=== PATIENT | male | born 1985 ===

== ENCOUNTER 2019-06-06 10:56 | Inpatient (IN) | payer MEDICAID ==
[~2019-06-06] VITALS: Ht 180.3 cm; Wt 116.8 kg
[2019-06-06] MEDS ORDERED: mag hydrox/Alum hydrox/simeth 30ml oral suspension PO PRN (12:00)
[2019-06-06] MEDS ORDERED: acetaminophen 325mg tablet PO PRN ×2 (12:00)
[2019-06-06] MEDS ORDERED: loperamide 2mg capsule PO PRN (12:00)
[2019-06-06] MEDS ORDERED: magnesium hydroxide 30ml (MOM) UD suspension PO PRN (12:00)
[2019-06-06] MEDS ORDERED: NICOTINE POLACRILEX 2 MG LOZENGE BC PRN (12:00)
[2019-06-06] MEDS ORDERED: NO HOME MEDS (12:54)
[2019-06-06 13:13] VITALS: BP 146/103
--- NOTE | 2019-06-06 16:29 | NUR ---
ADMIT NOTE The patient is a 34 year old male who attends [employer]. He presented to the [facility] reporting increased impulsive activities. Reported moods have been "all over the place", but mostly depressed with thoughts of suicide. Reports buying a motorcycle because it "was dangerous and if he crashed it would just be all over." Stated, "Its like having fight or flight feelings, but I'm frozen and waiting for the lion to kill me."
--- NOTE | 2019-06-06 16:40 | NUR ---
NURSING PROGRESS NOTE Legal hold: 5150 Client on involuntary status for DTS Report received from nurse with use of SBAR Why are they here: The patient is a 34 year old male who attends [employer]. He presented to the [facility] reporting increased impulsive activities. Reported moods have been "all over the place", but mostly depressed with thoughts of suicide. Reports buying a motorcycle because it "was dangerous and if he crashed it would just be all over." Stated, "Its like having fight or flight feelings, but I'm frozen and waiting for the lion to kill me." Assessment What has happened this shift: Patient was admitted, showered and oriented to unit. Depressed and blunted mood with mild anxiety. Cooperative. Attended Art Therapy and isolated to room. See admit note. S/I, H/I: Plan to drive motorcycle off a ryann A/VH: Denies Sleep: Napped ADL's: Self Group attendance: yes Were meds taken:None ordered Any med S/E N/A Mental Status Exam Appearance: Neat and clean Eye contact: Direct, good Behavior: Cooperative Speech: Clear, articulate Mood: depressed Affect: blunted Thought process: linear Thought Content: getting help Cognition: Alert Insight: poor Judgment: poor Interventions PRN's used: None Therapeutic interventions: 1:1 assessment, establish rapport, active listening, encouragement to attend groups, provided therapeutic environment, and q15m safety checks. Restraints/seclusion/emergency medication: None Justification of Continued Inpatient Treatment: Requires interruption of current crisis, medications, and a safe and supportive environment to prevent readmission.
[2019-06-06] MEDS: LORazepam 1 MG tablet PO PRN (20:08)
[2019-06-06 20:11] VITALS: BP 157/95
--- NOTE | 2019-06-07 00:27 | NUR ---
NURSING PROGRESS NOTE Legal hold: 5150 Client on involuntary status for DTS Report received from nurse with use of SBAR Why are they here: The patient is a 34 year old male who attends [employer]. He presented to the [facility] reporting increased impulsive activities. Reported moods have been "all over the place", but mostly depressed with thoughts of suicide. Reports buying a motorcycle because it "was dangerous and if he crashed it would just be all over." Stated, "Its like having fight or flight feelings, but I'm frozen and waiting for the lion to kill me." Assessment What has happened this shift: Pt was in his room resting during shift change. Pt was cooperative during 1:1 physical assessment. Pt sated that he had an alright day and was feeling pretty good. He denies S/I at the moment but states that his mood fluctuates and any trigger can set him off. "Lately, a lot of things have been triggering me, like people at school, and just being around too many people, I start getting very anxious and shacking." He does enforce anxiety and requested something for this. An Ativan was administered with good effect. Patient denies auditory and visual hallucinations. Pt remained isolative in his room but did come out for HS snack. S/I, H/I: Denies A/VH: Denies Sleep: See sleep assessment ADL's: Independent Group attendance: Attended HS snack Were meds taken: yes Any med S/E N/A: none noted or observed Mental Status Exam Appearance: Neat and clean Eye contact: Direct, good Behavior: Cooperative Speech: Clear, articulate Mood: good, anxious Affect: blunted Thought process: linear Thought Content: plans after discharge Cognition: Alert Insight: poor Judgment: poor Interventions PRN's used: None Therapeutic interventions: 1:1 assessment, establish rapport, active listening, encouragement to attend groups, provided therapeutic environment, and q15m safety checks. Restraints/seclusion/emergency medication: None Justification of Continued Inpatient Treatment: Requires interruption of current crisis, medications, and a safe and supportive environment to prevent readmission.
[2019-06-07 08:00] VITALS: BP 133/87
[2019-06-07] MEDS ORDERED: nicotine 21mg patch - 24 hr TD SCH (08:00)
[2019-06-07] MEDS: LORazepam 1 MG tablet PO PRN (08:04)
[2019-06-07 08:49] LABS: CHOL/HDL RATIO 4.6 (0.00-4.99); CHOLESTEROL 183 MG/DL (0-200); HDL CHOLESTEROL 40 MG/DL (35-60); LDL CHOLESTEROL 126 MG/DL (50-100); TRIGLYCERIDES 196 MG/DL (20-135)
[2019-06-07 09:01] LABS: HEMOGLOBIN A1C 4.6 % (4.5-6.2)
--- NOTE | 2019-06-07 13:53 | NUR ---
PSYCHOSOCIAL ASSESSMENT Toni is a 34 y/o [place] male who was placed on 5150 for danger to self. He reported he has had an increase in depression and anxiety over the last couple months. 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 He has had difficulty with school due to depression and anxiety. He reported he has struggled with depression since he was a teen. He reported an increase is suicidal thoughts. He stated he can't concentrate, has low energy, sleeps a lot, decreased appetite, feels hopeless, suicidal, easily overwhelmed, with mood lability. He stated, "I fell in love with a girl after one date". Ct acknowledged this was not normal to fall in love so quickly and the relationship with this girl fizzled, possibly due to Ct's overzealous feelings. Ct reported he could not think about anything else other than her. Kaya has been on medications in the past but is not currently on any. He did go to the [facility] at [employer] and saw a ABLE BODIED TANKERMAN there who referred him to the [facility] where he was later placed on 5150. Ct is not sure if he will return to [employer], stated he may want to take next semester off. He lives off student loans and his mother assists him with finances as well. 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 Ct thinks he may go stay with a friend in [place] upon discharge. RADHA Almaguer Addendum: 06/07/19 at 1357 by Cara Marques Amended: Links added.
--- NOTE | 2019-06-07 14:02 | NUR ---
PHONE CALL TO MOM Called Toni's mom (Kathleen ph# [phone]) at his request to inform her that he is here. Gave her the unit's # to reach him. She was quite surprised by the phone call. RADHA Almaguer
--- NOTE | 2019-06-07 15:48 | NUR ---
NURSING PROGRESS NOTE Legal hold: 5150 Client on involuntary status for DTS Report received from GEOVANY Erazo with use of SBAR Why are they here: The patient is a 34 year old male who attends [employer]. He presented to the [facility] reporting increased impulsive activities. Reported moods have been "all over the place", but mostly depressed with thoughts of suicide. Reports buying a motorcycle because it "was dangerous and if he crashed it would just be all over." Stated, "Its like having fight or flight feelings, but I'm frozen and waiting for the lion to kill me." Assessment What has happened this shift: Depressed and disheveled in the morning. States he feels anxious and "shaky", but has no outward signs. When walking in vega, he appears calm and no signs of shakiness. However he was given an Ativan this morning for his stated symptoms. The patient has difficulty answering direct questions, for example when asked have you ever had an actual suicide attempt in the past? he gives a a rambling indirect answer about having gone to the hospital with a friend who felt suicidal, or listening to a friend talk about being suicidal. When redirected to himself he becomes irritated with nurse. He stated "I don't feel like you and I communicate very well, can I have a different nurse? Attends most groups with encouragement and is polite and cooperative. Denies suicidal thoughts at this time. Denies hallucinations. S/I, H/I: Denies A/VH: Denies Sleep: Napped ADL's: Self Group attendance: yes Were meds taken: yes Any med S/E N/A Mental Status Exam Appearance: disheveled in morning Eye contact: Direct, good Behavior: Cooperative Speech: Clear, soft Mood: depressed Affect: blunted Thought process: linear Thought Content: wondering when he will see MD Cognition: Alert Insight: poor Judgment: fair Interventions PRN's used: Ativan Therapeutic interventions: 1:1 assessment, establish rapport, active listening, encouragement to attend groups, provided therapeutic environment, and q15m safety checks. Restraints/seclusion/emergency medication: None Justification of Continued Inpatient Treatment: Requires interruption of current crisis, medications, and a safe and supportive environment to prevent readmission.
[2019-06-07 19:59] VITALS: BP 148/104
--- NOTE | 2019-06-08 02:03 | NUR ---
NURSING PROGRESS NOTE Legal hold: 5150 Client on involuntary status for DTS Report received from GEOVANY Rock with use of SBAR Why are they here: The patient is a 34 year old male who attends [employer]. He presented to the [facility] reporting increased impulsive activities. Reported moods have been "all over the place", but mostly depressed with thoughts of suicide. Reports buying a motorcycle because it "was dangerous and if he crashed it would just be all over." Stated, "Its like having fight or flight feelings, but I'm frozen and waiting for the lion to kill me." Assessment What has happened this shift: Pt was in recreation room during shift change watching TV. Later on pt came up to this sign writer letterer or painter to request something for his headache. A Tylenol was given with good effect. Pt was cooperative during 1:1 physical assessment. Although was answering questions only with a yes or no and did not elaborate much on anything that was being asked and at times seemed irritated. He states that he had a pretty good day and his mood was "just ok. Not neutral, just a little bit higher" When asked if he was having S/I he stated "I don't really feel anything right now." When asked if he was having any anxiety he said "not really" and looked as his hands as if to see if they were shacking. His hands were not shacking. Pt did attend HS snack and was less isolative. Was socializing appropriately with other patients. S/I, H/I: Denies A/VH: Denies Sleep: See sleep assessment ADL's: Independent Group attendance: yes, attended HS snack Were meds taken: yes Any med S/E N/A: none noted or observed Mental Status Exam Appearance: appropriate, wearing green scrubs Eye contact: Direct, good Behavior: Resistant, is not participating much Speech: Clear, soft Mood: "just ok" Affect: blunted Thought process: linear Thought Content: Going home Cognition: Alert Insight: poor Judgment: fair Interventions PRN's used: Tylenol Therapeutic interventions: 1:1 assessment, establish rapport, active listening, encouragement to attend groups, provided therapeutic environment, and q15m safety checks. Restraints/seclusion/emergency medication: None Justification of Continued Inpatient Treatment: Requires interruption of current crisis, medications, and a safe and supportive environment to prevent readmission.
[2019-06-08 08:00] VITALS: BP 130/91
[2019-06-08] MEDS: buPROPion SR 150mg tablet PO SCH (08:23)
[2019-06-08] MEDS: LORazepam 1 MG tablet PO PRN (12:22)
--- NOTE | 2019-06-08 15:32 | NUR ---
NURSING PROGRESS NOTE Legal hold: 5150 Client on involuntary status for DTS Report received from GEOVANY Erazo with use of SBAR Why are they here: The patient is a 34 year old male who attends [employer] [employer] [employer]. He presented to the [facility] reporting increased impulsive activities. Reported moods have been "all over the place", but mostly depressed with thoughts of suicide. Reports buying a motorcycle because it "was dangerous and if he crashed it would just be all over." Stated, "Its like having fight or flight feelings, but I'm frozen and waiting for the lion to kill me." Assessment What has happened this shift: Depressed and guarded. Keeps to himself and gives one or two word answers to questions. Came to morning process group, afterwards requested Ativan for anxiety. He was tearful with slight shakiness in his hands. He would not articulate why he had increased anxiety. Endorses suicidal thoughts. When asked if thinking of harming self here and if so how, he reported "no, its more just like before" nurse asked do you mean like crashing your motorcycle?, and he responded, "yes." Responded well to Ativan. Talks with roommate and is coming to meals. Given educational material on WellButrin. S/I, H/I: positive for SI thinking of plan crash motorcycle A/VH: Denies Sleep: Napped ADL's: Self Group attendance: yes Were meds taken: yes Any med S/E N/A Mental Status Exam Appearance: appropriate Eye contact: Direct Behavior: Cooperative Speech: Clear, soft Mood: depressed Affect: guarded Thought process: linear Thought Content: unable to assess Cognition: Alert Insight: poor Judgment: fair Interventions PRN's used: Ativan Therapeutic interventions: 1:1 assessment, establish rapport, active listening, encouragement to attend groups, provided therapeutic environment, and q15m safety checks. Restraints/seclusion/emergency medication: None Justification of Continued Inpatient Treatment: Requires interruption of current crisis, medications, and a safe and supportive environment to prevent readmission.
[2019-06-08 19:57] VITALS: BP 129/77
--- NOTE | 2019-06-09 00:34 | NUR ---
NURSING PROGRESS NOTE Legal hold: 5150 Client on involuntary status for DTS Report received from GEOVANY Erazo with use of SBAR Why are they here: The patient is a 34 year old male who attends [employer]. He presented to the [facility] reporting increased impulsive activities. Reported moods have been "all over the place", but mostly depressed with thoughts of suicide. Reports buying a motorcycle because it "was dangerous and if he crashed it would just be all over." Stated, "Its like having fight or flight feelings, but I'm frozen and waiting for the lion to kill me." Assessment What has happened this shift: [facility]. Pt was pleasant and polite but was not very cooperative during 1:1 physical assessment. Answering to questions being asked with a yes or no. Pt states that he had a good day and would not elaborate on why. When asked if he was feeling anxiety, he denies. Pt denies S/I but not sure if she just doesn't want to talk about it. Pt did attend HS snack and socializing appropriately with other patients. Pt took a shower and after this he went back to his bed and slept for most of the night. S/I, H/I: Denies A/VH: Denies Sleep: See sleep assessment ADL's: Self Group attendance: yes Were meds taken: yes Any med S/E N/A Mental Status Exam Appearance: appropriate Eye contact: Direct Behavior: Restrictive Speech: Clear, soft Mood: depressed Affect: guarded Thought process: linear Thought Content: unable to assess Cognition: Alert Insight: poor Judgment: fair Interventions PRN's used:None Therapeutic interventions: 1:1 assessment, establish rapport, active listening, encouragement to attend groups, provided therapeutic environment, and q15m safety checks. Restraints/seclusion/emergency medication: None Justification of Continued Inpatient Treatment: Requires interruption of current crisis, medications, and a safe and supportive environment to prevent readmission.
[2019-06-09 07:14] VITALS: BP 149/88
[2019-06-09] MEDS: buPROPion SR 150mg tablet PO SCH (07:38)
[2019-06-09] MEDS ORDERED: BUPR-84 PO (11:59)
[2019-06-09] MEDS ORDERED: ATI1T PO (11:59)
--- NOTE | 2019-06-09 12:50 | NUR ---
Patient was discharged to his mother. He denies suicidal ideation. He wqas given all of his belongings. He was given prescription and education on all prescriptions. He left the unit with all of his things at 12;50 accompanied by Ra Newby en route to [place] [facility]. He is okay with scheduling his own appointments. His mood is good. Approved since admit. No SI or HI. Client is nonsmoker.
--- NOTE | 2019-06-10 11:23 | NUR ---
Linkages Presenting Issues: Pt was d/c'd over the weekend w/o linkage to outpt provider. Interventions: CM/Linkages SS had t/c with pt's mother, she expressed frustration that [facility] staff did not provide her w/any info re pt's admission here. Per t/c pt's mother will contact pt and let him know to contact SS for assistance in accessing oupt MH provider services. Plan: Pt already d/c'd, pt will rt SS t/c to access referral to outpt MH services. Addendum: 06/10/19 at 1126 by Katie Feng Amended: Links added.
--- NOTE | 2019-06-10 16:41 | NUR ---
Pt never called nor di his mother to obtain information re outpatient MH providers in the [place] and obtain referral/linkage services there. Katie Feng [employer]CKLE [employer]TON [employer]KER Addendum: 06/10/19 at 1643 by Katie Feng SS Amended: Links added.
== END 2019-06-09 12:50 | disposition home or self-care (01) | DRG 751 ==
LOC: ADULT MH 10:56
PROVIDERS: ADMIT Psychiatry & Neurology Psychiatry; ATTEND Psychiatry & Neurology Psychiatry
DX: F33.2 Major depressive disorder, recurrent severe without psychotic features (principal); R45.851 Suicidal ideations; F41.9 Anxiety disorder, unspecified; F90.9 Attention-deficit hyperactivity disorder, unspecified type; J45.909 Unspecified asthma, uncomplicated; Z79.899 Other long term (current) drug therapy
CPT/HCPCS: 36415; 80061; 83036; 87081; 99285